=== PATIENT | male | born 1970 | race Caucasian/White ===

== ENCOUNTER 2019-05-31 16:39 | Emergency (ER) | payer OTHER ==
[2019-05-31] MEDS ORDERED: FENTANYL CITR 100 MCG/2 ML ONE (16:52)
[2019-05-31] MEDS ORDERED: ONDANSETRON 4 MG/2 ML VIAL ONE (16:52)
[2019-05-31 17:20] LABS: Potassium 4.1 mmol/L (3.5-5.1)
[2019-05-31 17:30] LABS: Urine Blood 3+ (NEG); Urine Glucose NEGATIVE (NEG); Urine Protein 1+ (NEG); Urine Specific Gravity >1.030 (1.005-1.030)
--- NOTE | 2019-05-31 18:01 | RAD REPORT ---
EXAM DESCRIPTION: CT - Stone Protocol - 05/31/2019 5:10 pm CLINICAL HISTORY: Abdominal pain, back pain, dysuria, prior appendectomy COMPARISON: None. TECHNIQUE: Axial 3 mm thick images were obtained without oral or IV contrast. The [id number] span s the entirety of the system including uppermost abdomen and lung bases. All CT scans are performed using dose optimization technique as appropriate and may include automated exposure control or mA/KV adjustment according to patient size. FINDINGS: Mild left-sided hydronephrosis is present secondary to a 4 millimeter distal left ureteral calcification approximately 1 centimeter from the UVJ. No other left-sided calculi. An nonobstructin g 3 mm calcification is present lower pole of the right kidney. Minimal left-sided perinephric strand ing present. No suspicious renal masses. Isodense masses and pyelonephritis are not excluded on a sto ne protocol CT scan. Urinary bladder is fully contracted limiting assessment. No bladder calculi. No significant adrenal finding. Imaged portions of the liver, spleen and pancreas show no suspicious findings on non-contrast imaging . Two stones are present in the fundus of the gallbladder. No active gallbladder process suspected. N o biliary tree dilatation. No suspicious bowel findings. No mass or bulky lymphadenopathy. A small fat only umbilical hernia is present. Fat extends into the origin of the right inguinal canal. No free air, free fluid or inflammatory stranding. No significant bony abnormality. IMPRESSION: Mild left-sided hydronephrosis secondary to a 4 mm distal left ureteral calculus near th e UVJ. Cholelithiasis without active gallbladder or biliary tree finding. Isodense masses and pyelonephritis are not excluded on stone protocol technique.
--- NOTE | 2019-05-31 18:08 | ER ---
Nurse's Notes [facility] Name: Dex Cain Age: 48 yrs Sex: Male : 1970 Arrival Date: 05/31/2019 Time: 16:40 Bed 24 Private MD: Diagnosis: Calculus of kidney and ureter Presentation: 05/31 16:40 Presenting complaint: EMS states: patient is complaining of left lower back pain for a mg2 week now but worse today. he also reported burning micturition today. Transition of care: patient was not received from another setting of care. Onset of symptoms was May 2019. Risk Assessment: Do you want to hurt yourself or someone else? Patient reports no desire to harm self or others. Initial Sepsis Screen: Does the patient meet any 2 criteria? No. Patient's initial sepsis screen is negative. Does the patient have a suspected source of infection? No. Patient's initial sepsis screen is negative. Care prior to arrival: None. 16:40 Method Of Arrival: EMS: [facility] 16:40 Acuity: IMAN 3 mg2 Historical: - Allergies: 16:48 No Known Allergies; mg2 - Home Meds: 16:48 None [Active]; mg2 - PMHx: 16:48 None; mg2 - PSHx: 16:48 Appendectomy; mg2 - Immunization history:: Flu vaccine is not up to date. - Social history:: Smoking status: Patient uses tobacco products, smokes one pack cigarettes per day. Patient/guardian denies using alcohol, street drugs, IV drugs. - Ebola Screening: : No symptoms or risks identified at this time. Screenin:23 Abuse screen: Denies threats or abuse. Denies injuries from another. Nutritional mg2 screening: No deficits noted. Tuberculosis screening: No symptoms or risk factors identified. Fall Risk IV access (20 points). Assessment: 17:21 General: Appears uncomfortable, Behavior is cooperative. Pain: Complains of pain in mg2 left flank Pain does not radiate. Pain at worst was 10 out of 10 on a pain scale. Quality of pain is described as aching, Pain began gradually, Is intermittent. Neuro: Level of Consciousness is awake, alert, obeys commands, Oriented to person, place, time, situation. Cardiovascular: Capillary refill < 3 seconds Patient's skin is warm and dry. Respiratory: Airway is patent Respiratory effort is even, unlabored, Respiratory pattern is regular, symmetrical. GI: No signs and/or symptoms were reported involving the gastrointestinal system. : Reports burning with urination, pain in left flank(s). EENT: No signs and/or symptoms were reported regarding the EENT system. Derm: Skin is intact, is healthy with good turgor, Skin is pink, warm \T\ dry. normal. Musculoskeletal: Circulation, motion, and sensation intact. Capillary refill < 3 seconds. 18:01 Reassessment: Patient appears in no apparent distress at this time. Patient states mg2 feeling better. Patient states symptoms have improved. 18:19 Reassessment: patient up for discharge after completing magnesium sulfate. mg2 19:16 Reassessment: Patient states feeling better. Patient states symptoms have improved. mg2 Vital Signs: 16:47 BP 155 / 107; Pulse 78; Resp 18; Temp 98; Pulse Ox 100% on R/A; Weight 90.72 kg; Height mg2 6 ft. 0 in. (182.88 cm); Pain 8/10; 18:02 BP 136 / 95; Pulse 77; Resp 18; Pulse Ox 100% ; Pain 2/10; mg2 19:16 BP 133 / 80; Pulse 70; Resp 18; Temp 98; Pulse Ox 100% on R/A; mg2 16:47 Body Mass Index 27.12 (90.72 kg, 182.88 cm) mg2 ED Course: 16:40 Patient arrived in ED. mg2 16:40 Sadie Brush FNP-C is [facility]. kb 16:40 Ochoa Varela MD is Attending Physician. kb 16:46 Triage completed. mg2 16:48 Arm band placed on. mg2 17:03 Patient has correct armband on for positive identification. Bed in low position. Call [facility] light in reach. Side rails up X 1. Adult w/ patient. Pulse ox on. NIBP on. 17:03 Urine collected: clean catch specimen, yon colored. Inserted saline lock: 20 gauge in [facility] right antecubital area, using aseptic technique. Blood collected. 17:04 Basic Metabolic Panel Sent. [facility] 17:11 CT Stone Protocol In Process Unspecified. EDMS 17:14 Robert Gann RN is Primary Nurse. mg2 17:23 No provider procedures requiring assistance completed. mg2 18:08 Wesley Oviedo MD is Referral Physician. kb 19:16 IV discontinued, intact, bleeding controlled, No redness/swelling at site. Pressure mg2 dressing applied. Administered Medications: 16:57 Drug: fentaNYL (PF) 25 mcg Route: IVP; Site: right antecubital; mg2 17:20 Follow up: Response: No adverse reaction; Pain is unchanged, physician notified mg2 16:57 Drug: Zofran 4 mg Route: IVP; Site: right antecubital; mg2 17:19 Follow up: Response: No adverse reaction mg2 17:20 Drug: fentaNYL (PF) 25 mcg Route: IVP; Site: right antecubital; mg2 18:01 Follow up: Response: No adverse reaction; Marked relief of symptoms mg2 18:18 Drug: Magnesium Sulfate 2 grams Route: IVPB; Infused Over: 2 hrs; Site: right mg2 antecubital; 19:15 Follow up: Response: No adverse reaction; IV Status: Completed infusion mg2 18:18 Drug: TORadol - Ketorolac 15 mg Route: IVP; Site: right antecubital; mg2 19:15 Follow up: Response: No adverse reaction; Marked relief of symptoms mg2 18:18 Drug: Flomax 0.4 mg Route: PO; mg2 19:15 Follow up: Response: No adverse reaction mg2 Outcome: 18:07 Discharge ordered by MD. kb 19:16 Discharged to home ambulatory, with family. mg2 19:16 Condition: stable 19:16 Discharge instructions given to patient, family, Instructed on discharge instructions, follow up and referral plans. medication usage, Demonstrated understanding of instructions, follow-up care, medications, Prescriptions given X 4. 19:17 Patient left the ED. mg2 Signatures: Dispatcher [employer] EDSadie Wang, JEANNIE-C JEANNIE-Ashley Escalera 5 Robert Gann, KARSON RN mg2
--- NOTE | 2019-05-31 18:08 | EDPHYS ---
Physician Documentation [facility] Name: Dex Cain Age: 48 yrs Sex: Male : 1970 Arrival Date: 05/31/2019 Time: 16:40 Bed 24 Private MD: ED Physician Ochoa Varela HPI: 05/31 16:42 This 48 yrs old Male presents to ER via Unassigned with complaints of left kb flank pain. 16:42 The patient complains of pain in the left flank. The pain radiates to the groin. Onset: kb The symptoms/episode began/occurred 1 week(s) ago, and became worse 30 minute(s) ago. Modifying factors: The symptoms are alleviated by nothing. the symptoms are aggravated by nothing. Associated signs and symptoms: Pertinent positives: dysuria. Severity of pain: At its worst the pain was moderate in the emergency department the pain has improved mildly. The patient has not experienced similar symptoms in the past. The patient has not recently seen a physician. Pt reports left back pain that started a week ago. Had an episode of dysuria and then the pain became severe. Reports pain radiated to testicles for a few minutes, but not anymore. Historical: - Allergies: 16:48 No Known Allergies; mg2 - Home Meds: 16:48 None [Active]; mg2 - PMHx: 16:48 None; mg2 - PSHx: 16:48 Appendectomy; mg2 - Immunization history:: Flu vaccine is not up to date. - Social history:: Smoking status: Patient uses tobacco products, smokes one pack cigarettes per day. Patient/guardian denies using alcohol, street drugs, IV drugs. - Ebola Screening: : No symptoms or risks identified at this time. ROS: 16:44 Constitutional: Negative for fever, chills, and weight loss, ENT: Negative for injury, kb pain, and discharge, Neck: Negative for injury, pain, and swelling, Cardiovascular: Negative for chest pain, palpitations, and edema, Respiratory: Negative for shortness of breath, cough, wheezing, and pleuritic chest pain, Abdomen/GI: Negative for abdominal pain, nausea, vomiting, diarrhea, and constipation, MS/Extremity: Negative for injury and deformity, Skin: Negative for injury, rash, and discoloration, Neuro: Negative for headache, weakness, numbness, tingling, and seizure. 16:44 : Positive for urinary symptoms, flank pain, burning with urination, testicular pain Exam: 16:44 Constitutional: This is a well developed, well nourished patient who is awake, alert, kb and in no acute distress. Head/Face: Normocephalic, atraumatic. ENT: Nares patent. No nasal discharge, no septal abnormalities noted. Tympanic membranes are normal and external auditory canals are clear. Oropharynx with no redness, swelling, or masses, exudates, or evidence of obstruction, uvula midline. Mucous membranes moist. Neck: Trachea midline, no thyromegaly or masses palpated, and no cervical lymphadenopathy. Supple, full range of motion without nuchal rigidity, or vertebral point tenderness. No Meningismus. Chest/axilla: Normal chest wall appearance and motion. Nontender with no deformity. No lesions are appreciated. Cardiovascular: Regular rate and rhythm with a normal S1 and S2. No gallops, murmurs, or rubs. Normal PMI, no JVD. No pulse deficits. Respiratory: Lungs have equal breath sounds bilaterally, clear to auscultation and percussion. No rales, rhonchi or wheezes noted. No increased work of breathing, no retractions or nasal flaring. Abdomen/GI: Soft, non-tender, with normal bowel sounds. No distension or tympany. No guarding or rebound. No evidence of tenderness throughout. Back: No spinal tenderness. No costovertebral tenderness. Full range of motion. Skin: Warm, dry with normal turgor. Normal color with no rashes, no lesions, and no evidence of cellulitis. MS/ Extremity: Pulses equal, no cyanosis. Neurovascular intact. Full, normal range of motion. Neuro: Awake and alert, GCS 15, oriented to person, place, time, and situation. Cranial nerves II-XII grossly intact. Motor strength 5/5 in all extremities. Sensory grossly intact. Cerebellar exam normal. Normal gait. Vital Signs: 16:47 BP 155 / 107; Pulse 78; Resp 18; Temp 98; Pulse Ox 100% on R/A; Weight 90.72 kg; Height mg2 6 ft. 0 in. (182.88 cm); Pain 8/10; 18:02 BP 136 / 95; Pulse 77; Resp 18; Pulse Ox 100% ; Pain 2/10; mg2 19:16 BP 133 / 80; Pulse 70; Resp 18; Temp 98; Pulse Ox 100% on R/A; mg2 16:47 Body Mass Index 27.12 (90.72 kg, 182.88 cm) mg2 MDM: 16:41 Patient medically screened. kb 16:44 Data reviewed: vital signs, nurses notes. Data interpreted: Pulse oximetry: on room air kb is 100 %. Interpretation: normal. 18:07 Counseling: I had a detailed discussion with the patient and/or guardian regarding: the kb historical points, exam findings, and any diagnostic results supporting the discharge/admit diagnosis, lab results, radiology results, the need for outpatient follow up, a family practitioner, a urologist, to return to the emergency department if symptoms worsen or persist or if there are any questions or concerns that arise at home. 05/31 16:41 Order name: Basic Metabolic Panel; Complete Time: 17:24 kb 05/31 17:27 Order name: Urine Dipstick--Ancillary (enter results); Complete Time: 17:32 bd 05/31 16:41 Order name: CT Stone Protocol; Complete Time: 18:08 kb 05/31 16:41 Order name: IV Start; Complete Time: 16:57 kb 05/31 16:41 Order name: Urine Dipstick-Ancillary (obtain specimen); Complete Time: 16:57 kb Administered Medications: 16:57 Drug: fentaNYL (PF) 25 mcg Route: IVP; Site: right antecubital; mg2 17:20 Follow up: Response: No adverse reaction; Pain is unchanged, physician notified mg2 16:57 Drug: Zofran 4 mg Route: IVP; Site: right antecubital; mg2 17:19 Follow up: Response: No adverse reaction mg2 17:20 Drug: fentaNYL (PF) 25 mcg Route: IVP; Site: right antecubital; mg2 18:01 Follow up: Response: No adverse reaction; Marked relief of symptoms mg2 18:18 Drug: Magnesium Sulfate 2 grams Route: IVPB; Infused Over: 2 hrs; Site: right mg2 antecubital; 19:15 Follow up: Response: No adverse reaction; IV Status: Completed infusion mg2 18:18 Drug: TORadol - Ketorolac 15 mg Route: IVP; Site: right antecubital; mg2 19:15 Follow up: Response: No adverse reaction; Marked relief of symptoms mg2 18:18 Drug: Flomax 0.4 mg Route: PO; mg2 19:15 Follow up: Response: No adverse reaction mg2 Disposition: 06/01 07:01 Co-signature as Attending Physician, Ochoa Varela MD. rn Disposition: 05/31/19 18:07 Discharged to Home. Impression: Calculus of kidney and ureter. - Condition is Stable. - Discharge Instructions: Kidney Stones, [id number], Dietary Guidelines to Help Prevent Kidney Stones. - Prescriptions for Tylenol- Codeine #3 300-30 mg Oral Tablet - take 1 tablet by ORAL route every 6 hours As needed; 15 tablet. Zofran 4 mg Oral Tablet - take 1 tablet by ORAL route every 6 hours As needed; 20 tablet. Flomax 0.4 mg Oral Capsule, Sust. Release 24 hr - take 1 capsule by ORAL route once daily; 10 capsule. Diclofenac Sodium 75 mg Oral Tablet, Delayed Release (E.C.) - take 1 tablet by ORAL route 2 times per day As needed; 30 tablet. - Medication Reconciliation Form, Thank You Letter, Antibiotic Education, Prescription Opioid Use form. - Follow up: Emergency Department; When: As needed; Reason: Worsening of condition. Follow up: Private Physician; When: 2 - 3 days; Reason: Recheck today's complaints, Continuance of care, Re-evaluation by your physician. Follow up: Wesley Oviedo MD; When: 2 - 3 days; Reason: Recheck today's complaints. Signatures: Dispatcher [employer] EDNE Sadie Brush, SENIOR LOAN OFFICER-C SENIOR LOAN OFFICER-Ckb Ochoa Varela MD MD rn Gardose, Michele, RN RN mg2 Corrections: (The following items were deleted from the chart) 05/31 18:08 18:07 05/31/2019 18:07 Discharged to Home. Impression: Calculus of kidney and ureter. kb Condition is Stable. Forms are Medication Reconciliation Form, Thank You Letter, Antibiotic Education, Prescription Opioid Use. Follow up: Emergency Department; When: As needed; Reason: Worsening of condition. Follow up: Private Physician; When: 2 - 3 days; Reason: Recheck today's complaints, Continuance of care, Re-evaluation by your physician. kb 19:17 18:08 05/31/2019 18:07 Discharged to Home. Impression: Calculus of kidney and ureter. mg2 Condition is Stable. Discharge Instructions: Kidney Stones, [id number], Dietary Guidelines to Help Prevent Kidney Stones. Prescriptions for Tylenol-Codeine #3 300-30 mg Oral Tablet - take 1 tablet by ORAL route every 6 hours As needed; 15 tablet, Zofran 4 mg Oral Tablet - take 1 tablet by ORAL route every 6 hours As needed; 20 tablet, Flomax 0.4 mg Oral Capsule, Sust. Release 24 hr - take 1 capsule by ORAL route once daily; 10 capsule, Diclofenac Sodium 75 mg Oral Tablet, Delayed Release (E.C.) - take 1 tablet by ORAL route 2 times per day As needed; 30 tablet. and Forms are Medication Reconciliation Form, Thank You Letter, Antibiotic Education, Prescription Opioid Use. Follow up: Emergency Department; When: As needed; Reason: Worsening of condition. Follow up: Private Physician; When: 2 - 3 days; Reason: Recheck today's complaints, Continuance of care, Re-evaluation by your physician. Follow up: Wesley Oviedo; When: 2 - 3 days; Reason: Recheck today's complaints. kb
[2019-05-31] MEDS ORDERED: TAMSULOSIN 0.4 MG SR CAP ONE (18:09)
[2019-05-31] MEDS ORDERED: Magnesium Sulfate 2gm IVPB 2 G/50 ML BAG IV ONE (18:10)
[2019-05-31] MEDS ORDERED: KETOROLAC 30 MG/ML INJ ONE (18:10)
[2019-05-31 19:34] VITALS: TEMP 98; O2SAT 100
[2019-05-31 19:37] VITALS: BP 133/80
== END 2019-05-31 19:17 | disposition home or self-care (01) ==
LOC: ER 16:39
DX: N20.2 Calculus of kidney with calculus of ureter (principal); F17.210 Nicotine dependence, cigarettes, uncomplicated
CPT/HCPCS: 96365; 80048; 36415; 81003; 76377; 74176; 96375; 99284; J3010; J3475; J2405